=== PATIENT | male | born 1995 | race Caucasian/White ===

== ENCOUNTER 2020-10-30 17:36 | Emergency (ER) | payer SELFPAY | END 2020-10-30 18:35 | disposition home or self-care (01) | LOC: ER1 17:36 | DX: S83.92XA Sprain of unspecified site of left knee, initial encounter (principal); S73.102A Unspecified sprain of left hip, initial encounter; X50.0XXA Overexertion from strenuous movement or load, initial encounter; Y92.69 Other specified industrial and construction area as the place of occurrence of the external cause; Y99.0 Civilian activity done for income or pay | CPT/HCPCS: 73502; 73564; 99283 ==

== ENCOUNTER 2021-07-23 19:05 | Emergency (ER) | payer OTHER | END 2021-07-23 21:11 | disposition left against medical advice (07) | LOC: ER1 19:05 | DX: Z53.21 Procedure and treatment not carried out due to patient leaving prior to being seen by health care provider (principal) ==